=== PATIENT | male | born 1980 | race African-American/Black ===

== ENCOUNTER 2021-03-12 09:49 | Emergency (ER) | payer OTHER ==
[~2021-03-12] VITALS: Ht 180.3 cm; Wt 145.1 kg
[2021-03-12] MEDS ORDERED: PEPCID20 MG PO (10:34)
[2021-03-12] MEDS ORDERED: DONNATAL/LIDOCAINE/MAALOX 30 ML SUSP PO ONE (10:45)
[2021-03-12] MEDS ORDERED: LIDOCAINE VISC 2% SOLN 15 ML UDC ONE (10:46)
[2021-03-12] MEDS ORDERED: BELLADONNA ALK/PHENOBARBITAL 5 ML UDC ONE (10:46)
[2021-03-12] MEDS ORDERED: MAGNESIUM/ALUMINUM/SIMETHICONE 30 ML UDC ONE (10:47)
== END 2021-03-12 10:45 | disposition home or self-care (01) ==
LOC: ER 10:32
DX: R10.13 Epigastric pain (principal); I10 Essential (primary) hypertension
CPT/HCPCS: 99282